=== PATIENT | female | born 1990 | race Two or more races ===

== ENCOUNTER 2018-12-21 12:56 | Emergency (ER) | payer MEDICAID, OTHER ==
[~2018-12-21] VITALS: Ht 157.5 cm; Wt 94.6 kg
[~2018-12-21 12:56] MED LIST: CYAN25009 PO; IBUP-1222 PO; NITR100C56 PO; OXYC-302 PO; PREN1TAB10 PO; PREN1TAB56 PO; TOPI25TA32 PO; [UNRECOGNIZED DRUG - REMARK]
[2018-12-21 12:58] VITALS: BP 134/86
[2018-12-21 13:53] LABS: CULTURE INDICATED? YES; MICROSCOPIC INDICATED
[2018-12-21] MEDS ORDERED: MAALOX/HYOSCYAMINE/LIDOCAINE 45 ML BTL PO ONE (14:30)
[2018-12-21] MEDS ORDERED: MAALOX/HYOSCYAMINE/LIDOCAINE 45 ML BTL ONE (14:32)
--- NOTE | 2018-12-21 14:36 | NUR ---
PT TO ULTRASOUND.
[2018-12-21 14:45] LABS: BASOPHILS % (AUTO) 0 % (0-1); EOSINOPHILS # (AUTO) 0.01 x10^3/uL (0-0.4); EOSINOPHILS % (AUTO) 0 % (1-7); LYMPHOCYTES # (AUTO) 0.49 x10^3/uL (1-3.4); LYMPHOCYTES % (AUTO) 9 % (22-44); MD NO; MEAN CORPUSCULAR HEMOGLOBIN 30.1 pg (27.0-34.8); MEAN CORPUSCULAR HGB CONC 33.2 g/dL (32.4-35.8); MEAN CORPUSCULAR VOLUME 90.6 fL (80-100); MEAN PLATELET VOLUME 9.3 fL (7.4-10.4); MONOCYTES # (AUTO) 0.29 x10^3/uL (0.2-0.8); MONOCYTES % (AUTO) 5 % (2-9); NEUTROPHILS # (AUTO) 4.92 x10^3/uL (1.8-6.8); NEUTROPHILS % (AUTO) 86 % (42-75); PLATELET COUNT 209 x10^3/uL (130-400); RED BLOOD COUNT 4.27 x10^6/uL (3.82-5.3); RED CELL DISTRIBUTION WIDTH 12.9 % (9.6-15.2)
[2018-12-21 14:57] LABS: ALBUMIN 3.4 g/dL (3.4-5.0); ANION GAP 6 mmol/L (5-15); CALCIUM 8.4 mg/dL (8.5-10.1); CHLORIDE 107 mmol/L (98-107); CREATININE 0.55 mg/dL (0.55-1.02)
[2018-12-21 15:43] LABS: MICROSCOPIC NOT IND
[2018-12-21 15:46] LABS: CULTURE INDICATED? NO
--- NOTE | 2018-12-21 17:00 | NUR ---
CARE FOR DC ONLY PROVIDED. PT SITTING UP ON GURNEY, NO ACUTE DISTRESS NOTED. NO IV TO DC. REVIEWED DC INSTRUCTIONS WITH PT. UNDERSTANDING VERBALIZED. PT LEFT AMB, GAIT STEADY.
== END 2018-12-21 19:02 | disposition home or self-care (01) ==
LOC: ED 16:52
DX: O26.891 Other specified pregnancy related conditions, first trimester (principal); R10.12 Left upper quadrant pain; O21.9 Vomiting of pregnancy, unspecified; Z3A.01 Less than 8 weeks gestation of pregnancy
CPT/HCPCS: 36415; 76830; 80048; 81001; 81003; 82040; 84702; 85025; 87086; 93005; 99284

== ENCOUNTER 2018-12-28 15:30 | Emergency (ER) | payer MEDICAID ==
[~2018-12-28] VITALS: Ht 157.5 cm; Wt 92.0 kg
[2018-12-28] MEDS ORDERED: METOCLOPRAMIDE 5 MG/ML, 2ML ONE (16:15)
--- NOTE | 2018-12-28 16:20 | NUR ---
BREAK RN: PIV STARTED, PT MEDICATED PER EMAR. RESTING ON GURNEY. AWARE OF POC. NADN. VSS.
[2018-12-28 16:24] LABS: BASOPHILS # (AUTO) 0.02 x10^3/uL (0-0.1); BASOPHILS % (AUTO) 0 % (0-1); EOSINOPHILS # (AUTO) 0.04 x10^3/uL (0-0.4); EOSINOPHILS % (AUTO) 1 % (1-7); LYMPHOCYTES # (AUTO) 2.69 x10^3/uL (1-3.4); LYMPHOCYTES % (AUTO) 45 % (22-44); MD NO; MEAN CORPUSCULAR HEMOGLOBIN 30.1 pg (27.0-34.8); MEAN CORPUSCULAR HGB CONC 33.2 g/dL (32.4-35.8); MEAN CORPUSCULAR VOLUME 90.8 fL (80-100); MEAN PLATELET VOLUME 9.5 fL (7.4-10.4); MONOCYTES # (AUTO) 0.38 x10^3/uL (0.2-0.8); MONOCYTES % (AUTO) 7 % (2-9); NEUTROPHILS # (AUTO) 2.78 x10^3/uL (1.8-6.8); NEUTROPHILS % (AUTO) 47 % (42-75); PLATELET COUNT 223 x10^3/uL (130-400); RED BLOOD COUNT 4.61 x10^6/uL (3.82-5.3); RED CELL DISTRIBUTION WIDTH 12.5 % (9.6-15.2)
[2018-12-28 16:25] LABS: CULTURE INDICATED? YES; MICROSCOPIC INDICATED
[2018-12-28] MEDS ORDERED: SODIUM CHLORIDE FLUSH 10ML SYR IVF ONE (16:30)
[2018-12-28] MEDS ORDERED: METOCLOPRAMIDE 5 MG/ML, 2ML IVPush ONE (16:30)
[2018-12-28] MEDS ORDERED: SODIUM CHLORIDE 0.9% 1,000ML IVBOLUS ONE (16:30)
[2018-12-28 16:32] LABS: ALBUMIN 3.9 g/dL (3.4-5.0); ANION GAP 5 mmol/L (5-15); CALCIUM 9.1 mg/dL (8.5-10.1); CHLORIDE 106 mmol/L (98-107); CREATININE 0.52 mg/dL (0.55-1.02)
--- NOTE | 2018-12-28 17:42 | NUR ---
UA COLLECTED VIA STRAIGHT CATH AND TAKEN TO LAB.
[2018-12-28 17:59] LABS: MICROSCOPIC AUTO
[2018-12-28 18:01] VITALS: BP 116/84
--- NOTE | 2018-12-28 18:01 | NUR ---
PT RESTING ON [employer] WATCHING TV.
[2018-12-28 18:09] LABS: CULTURE INDICATED? YES
== END 2018-12-28 18:49 | disposition home or self-care (01) ==
LOC: ED 18:19
DX: O21.0 Mild hyperemesis gravidarum (principal); Z3A.01 Less than 8 weeks gestation of pregnancy; Z90.49 Acquired absence of other specified parts of digestive tract
CPT/HCPCS: 36415; 80048; 81001; 82040; 85025; 87086; 96361; 96374; 99283; J2765; J7030

== ENCOUNTER 2019-02-03 16:38 | Emergency (ER) | payer MEDICAID ==
[~2019-02-03] VITALS: Ht 157.5 cm; Wt 93.6 kg
[2019-02-03 17:55] LABS: BASOPHILS # (AUTO) 0.05 x10^3/uL (0-0.1); BASOPHILS % (AUTO) 1 % (0-1); EOSINOPHILS # (AUTO) 0.06 x10^3/uL (0-0.4); EOSINOPHILS % (AUTO) 1 % (1-7); LYMPHOCYTES # (AUTO) 2.12 x10^3/uL (1-3.4); LYMPHOCYTES % (AUTO) 26 % (22-44); MD NO; MEAN CORPUSCULAR HEMOGLOBIN 30.4 pg (27.0-34.8); MEAN CORPUSCULAR HGB CONC 33.4 g/dL (32.4-35.8); MEAN PLATELET VOLUME 9.5 fL (7.4-10.4); MONOCYTES # (AUTO) 0.45 x10^3/uL (0.2-0.8); MONOCYTES % (AUTO) 6 % (2-9); NEUTROPHILS # (AUTO) 5.42 x10^3/uL (1.8-6.8); NEUTROPHILS % (AUTO) 67 % (42-75); PLATELET COUNT 261 x10^3/uL (130-400)
[2019-02-03 18:07] LABS: ALANINE AMINOTRANSFERASE 17 U/L (12-78); ALBUMIN 3.3 g/dL (3.4-5.0); ANION GAP 6 mmol/L (5-15); CHLORIDE 106 mmol/L (98-107); CREATININE 0.55 mg/dL (0.55-1.02)
[2019-02-03 18:09] LABS: ALKALINE PHOSPHATASE 74 U/L (45-117); BILIRUBIN,TOTAL 0.2 mg/dL (0.2-1.0); TOTAL PROTEIN 8.5 g/dL (6.4-8.2)
[2019-02-03 19:14] LABS: MICROSCOPIC NOT IND
[2019-02-03 19:24] LABS: CULTURE INDICATED? NO
--- NOTE | 2019-02-03 20:29 | NUR ---
PT AMB TO ROOM WITH STEADY GAIT. PT PLACED ON MONITORING VSS, NADN.
[2019-02-03 20:34] VITALS: BP 124/80
--- NOTE | 2019-02-03 21:46 | NUR ---
PT RESTING ON DAJA, OB TO SEE SHORTLY
== END 2019-02-03 22:17 | disposition home or self-care (01) ==
LOC: ED 20:57
DX: O03.4 Incomplete spontaneous abortion without complication (principal); Z90.49 Acquired absence of other specified parts of digestive tract
CPT/HCPCS: 36415; 76801; 80053; 81003; 85025; 86901; 99284

== ENCOUNTER 2019-02-05 14:11 | Emergency (ER) | payer MEDICAID ==
[~2019-02-05] VITALS: Ht 157.5 cm; Wt 94.0 kg
--- NOTE | 2019-02-05 18:23 | NUR ---
PT TO ROOM AT THIS TIME.
--- NOTE | 2019-02-05 18:52 | NUR ---
ASSUMING CARE OF PT AT THIS TIME. PT RESTING IN BED COMFORTABLY AT THIS TIME. MD TO BEDSIDE TO ASSESS PT. VSS AT THIS TIME. FAMILY AT BEDSIDE. CALL LIGHT WITHIN REACH. AWAITING US AND FURTHER ORDERS
--- NOTE | 2019-02-05 19:47 | NUR ---
US AT BEDSIDE NOW FOR TESTING
[2019-02-05 19:55] VITALS: BP 138/86
--- NOTE | 2019-02-05 20:02 | NUR ---
US COMPLETE, AWAITING RESULTS AT THIS TIME
--- NOTE | 2019-02-05 20:30 | NUR ---
ALL RESULTS BACK AT THIS TIME, CHART UP FOR RECHECK
--- NOTE | 2019-02-05 21:09 | NUR ---
Patient/Caregiver given discharge instructions and they have confirmed that they understand the instructions. Patient ambulatory with steady gait. Pt offered community resources to help with grieving pt reported she did not want any. Pt infored if she changed her mind she could reach out to us.
== END 2019-02-05 21:13 | disposition home or self-care (01) ==
LOC: ED 21:00
DX: O36.4XX0 Maternal care for intrauterine death, not applicable or unspecified (principal); Z3A.11 11 weeks gestation of pregnancy; Z87.11 Personal history of peptic ulcer disease; Z90.49 Acquired absence of other specified parts of digestive tract
CPT/HCPCS: 76815; 99284

== ENCOUNTER 2019-02-09 14:39 | Day surgery (SDC) | payer MEDICAID ==
[~2019-02-09] VITALS: Ht 157.5 cm; Wt 92.0 kg
[~2019-02-09 14:39] MED LIST changes: +METHYLERGONOVINE 0.2 MG/ML IM ONE; +MISOPROSTOL 200 MCG TABLET ONE; +OXYTOCIN 10 UNITS/ML, 1ML ONE; +SILVER NITRATE STICK TP ONE
[2019-02-09] MEDS ORDERED: LACTATED RINGERS 1,000 ML IV SCH (15:17)
[2019-02-09 15:18] VITALS: BP 117/80
[2019-02-09] MEDS ORDERED: FAMO-79 PO (15:37)
[2019-02-09] MEDS ORDERED: MIDAZOLAM 1 MG/ML, 2ML ONE (16:44)
[2019-02-09] MEDS ORDERED: FENTANYL PF 100 MCG/2ML ONE ×2 (16:44→18:12)
[2019-02-09] MEDS ORDERED: PROPOFOL 50 ML ONE (16:45)
[2019-02-09] MEDS ORDERED: ONDANSETRON 2MG/ML, 2ML ONE (16:53)
[2019-02-09] MEDS ORDERED: DEXAMETHASONE 4 MG/ML, 1ML ONE (16:53)
[2019-02-09] MEDS ORDERED: CEFAZOLIN 1,000 MG ONE ×2 (17:05)
[2019-02-09] MEDS ORDERED: EPHEDRINE 50 MG/ML, 1ML IM PRN (17:30)
[2019-02-09] MEDS ORDERED: ACETAMINOPHEN 325 MG TABLET PO PRN (17:30)
[2019-02-09] MEDS ORDERED: OXYcodone 5 MG/5 ML ORAL.SOL UDC PO PRN (17:30)
[2019-02-09] MEDS ORDERED: DIAZEPAM 5 MG/ML, 2ML IVPush PRN (17:30)
[2019-02-09] MEDS ORDERED: DIPHENHYDRAMINE 50 MG/ML, 1ML IVPush PRN (17:30)
[2019-02-09] MEDS ORDERED: EPHEDRINE 50 MG/ML, 1ML IVPush PRN (17:30)
[2019-02-09] MEDS ORDERED: PROMETHAZINE 25 MG/ML, 1ML IV PRN (17:30)
[2019-02-09] MEDS ORDERED: MORPHINE SULFATE 4 MG/ML, 1ML IVPush PRN (17:30)
[2019-02-09] MEDS ORDERED: MIDAZOLAM 1 MG/ML, 2ML IV PRN (17:30)
[2019-02-09] MEDS ORDERED: FENTANYL PF 100 MCG/2ML IV PRN (17:30)
[2019-02-09] MEDS ORDERED: ONDANSETRON ODT 8 MG PO PRN (17:30)
[2019-02-09] MEDS ORDERED: MEPERIDINE/PF 25MG/ML,1ML IVPush PRN (17:30)
[2019-02-09] MEDS ORDERED: ONDANSETRON 2MG/ML, 2ML IV PRN (17:30)
[2019-02-09] MEDS ORDERED: ACETAMINOPHEN 650 MG/20.3 ML UDC ONE (18:12)
[2019-02-09] MEDS ORDERED: OXYcodone 5 MG/5 ML ORAL.SOL UDC ONE (18:12)
[2019-02-09] MEDS ORDERED: IBUP-1223 PO (19:19)
[2019-02-09] MEDS ORDERED: METH0.2T45 PO (19:20)
[2019-02-09] MEDS ORDERED: DOXY100T PO (19:21)
== END 2019-02-09 20:30 | disposition home or self-care (01) ==
LOC: OR 14:39 → 4NE 19:00 → OR 20:30
PROVIDERS: ATTEND Obstetrics & Gynecology
DX: O02.1 Missed abortion (principal); G43.909 Migraine, unspecified, not intractable, without status migrainosus; Z3A.11 11 weeks gestation of pregnancy; Z90.49 Acquired absence of other specified parts of digestive tract
CPT/HCPCS: 36415; 59820; 86850; 86900; 88305; J0690; J1100; J2210; J2250; J2405; J2704; J3010; J7120; G0378; J2590

== ENCOUNTER 2019-02-17 18:54 | Emergency (ER) | payer MEDICAID ==
[~2019-02-17] VITALS: Ht 157.5 cm; Wt 94.4 kg
[~2019-02-17 18:54] MED LIST changes: +DOXY100T PO; +FAMO-79 PO; +IBUP-1223 PO; +METH0.2T45 PO; -METHYLERGONOVINE 0.2 MG/ML IM ONE; -MISOPROSTOL 200 MCG TABLET ONE; -OXYTOCIN 10 UNITS/ML, 1ML ONE; -SILVER NITRATE STICK TP ONE
[2019-02-17 18:59] VITALS: BP 135/80
--- NOTE | 2019-02-17 19:11 | NUR ---
PT AMBULATORY TO ROOM WITH TRIAGE TECH. NAD NOTED.
--- NOTE | 2019-02-17 19:33 | NUR ---
PELVIC EXAM COMPLETED BY ERP. SCANT BLOOD NOTED. PT PWD; NAD. REPORTS 1-2 PAD/HR X 1500. D&C 01/09 FOR MISCARRIAGE, LMP IN NOVEMBER. A1
[2019-02-17 19:35] LABS: BASOPHILS # (AUTO) 0.03 x10^3/uL (0-0.1); BASOPHILS % (AUTO) 0 % (0-1); EOSINOPHILS # (AUTO) 0.14 x10^3/uL (0-0.4); EOSINOPHILS % (AUTO) 2 % (1-7); LYMPHOCYTES # (AUTO) 2.51 x10^3/uL (1-3.4); LYMPHOCYTES % (AUTO) 31 % (22-44); MD NO; MEAN CORPUSCULAR HEMOGLOBIN 29.2 pg (27.0-34.8); MEAN CORPUSCULAR HGB CONC 32.7 g/dL (32.4-35.8); MEAN CORPUSCULAR VOLUME 89.5 fL (80-100); MONOCYTES # (AUTO) 0.44 x10^3/uL (0.2-0.8); MONOCYTES % (AUTO) 5 % (2-9); NEUTROPHILS # (AUTO) 5.12 x10^3/uL (1.8-6.8); NEUTROPHILS % (AUTO) 62 % (42-75); PLATELET COUNT 263 x10^3/uL (130-400); RED BLOOD COUNT 3.82 x10^6/uL (3.82-5.3); RED CELL DISTRIBUTION WIDTH 13.1 % (9.6-15.2)
--- NOTE | 2019-02-17 20:38 | NUR ---
DC EDUCATION PROVIDED, PT DEMONSTRATES UNDERSTANDING. PT AMBULATED STEADILY TO DC WITH RN AND SO. SO TO TRANSPORT PT HOME.
== END 2019-02-17 20:40 | disposition home or self-care (01) ==
LOC: ED 20:30
DX: O03.6 Delayed or excessive hemorrhage following complete or unspecified spontaneous abortion (principal); O99.011 Anemia complicating pregnancy, first trimester; Z3A.01 Less than 8 weeks gestation of pregnancy
CPT/HCPCS: 36415; 76830; 84702; 85025; 99284

== ENCOUNTER 2020-08-25 20:24 | Emergency (ER) | payer MEDICAID ==
[~2020-08-25] VITALS: Ht 157.5 cm; Wt 98.2 kg
[~2020-08-25 20:24] MED LIST changes: -OXYC-302 PO; +OXYC1TAB14 PO
[2020-08-25 22:21] LABS: HCG UR SG 1.017 (1.003-1.030); MICROSCOPIC AUTO
[2020-08-25] MEDS ORDERED: IBUPROFEN 800 MG TABLET ONE (23:13)
[2020-08-25 23:14] LABS: BASOPHILS % (AUTO) 1 % (0-1); EOSINOPHILS % (AUTO) 1 % (1-7); LYMPHOCYTES % (AUTO) 35 % (22-44); MEAN PLATELET VOLUME 9.5 fL (7.4-10.4); MONOCYTES % (AUTO) 7 % (2-9); NEUTROPHILS % (AUTO) 57 % (42-75); PLATELET COUNT 294 x10^3/uL (130-400); RED CELL DISTRIBUTION WIDTH 13.3 % (9.6-15.2)
[2020-08-25 23:16] LABS: ALBUMIN 3.5 g/dL (3.4-5.0); ANION GAP 2 mmol/L (5-15); CALCIUM 9.1 mg/dL (8.5-10.1); CHLORIDE 104 mmol/L (98-107)
[2020-08-25 23:22] LABS: ALANINE AMINOTRANSFERASE 21 U/L (12-78); ALKALINE PHOSPHATASE 84 U/L (45-117); BILIRUBIN,TOTAL 0.1 mg/dL (0.2-1.0); CREATININE 0.71 mg/dL (0.55-1.02); TOTAL PROTEIN 8.5 g/dL (6.4-8.2)
[2020-08-25] MEDS ORDERED: IBUPROFEN 800 MG TABLET PO ONE (23:30)
--- NOTE | 2020-08-26 00:52 | NUR ---
report to roxy
[2020-08-26] MEDS ORDERED: HYDROcodone/APAP 5/325 TABLET ONE (00:53)
[2020-08-26 00:58] VITALS: BP 140/92
[2020-08-26] MEDS ORDERED: HYDROcodone/APAP 5/325 TABLET PO ONE (01:00)
== END 2020-08-26 01:31 | disposition home or self-care (01) ==
LOC: ED 20:54
DX: N83.202 Unspecified ovarian cyst, left side (principal); R10.32 Left lower quadrant pain; Z90.49 Acquired absence of other specified parts of digestive tract
CPT/HCPCS: 36415; 76830; 80053; 81001; 81025; 85025; 87086; 99284